=== PATIENT | male | born 2000 | race Two or more races ===

== ENCOUNTER 2024-01-20 11:31 | Emergency (ER) | payer MEDICAID, SELFPAY ==
[2024-01-20 11:35] VITALS: BP 128/73; PULSE 68; RESP 19; TEMP 36.6; O2SAT 98; BMI 28.1
--- NOTE | 2024-01-20 11:53 | ED.GENADULT ---
HPI - General Adult General Chief complaint: Wound/Laceration Stated complaint: R Ear Needs to be Drained Time Seen by Provider: 01/20/24 11:53 Source: patient Mode of arrival: ambulatory Limitations: no limitations History of Present Illness HPI narrative: Patient is a 23 year old, otherwise healthy, male presenting with an abscess behind his right ear. Patient endorses pain when the lesion is touched and a previous history of similar abscesses. Patient reports having previous abscesses surgically drained. MD complaint: Abscess behind right ear Onset (ago): week(s) (1) Location: head (behind right ear, close to earlobe.) Radiation: non-radiation Severity: mild Severity scale (1-10): 3 Pain Consistency: intermittent (when pressure is applied) Relieving factors: none Exacerbating factors: none Associated symptoms: denies other symptoms Treatments prior to arrival: none Related Data Previous Rx's Medication Instructions Recorded cefuroxime axetil 250 mg tablet 250 mg PO BID 7 days #14 tabs 01/20/24 Allergies Allergy/AdvReac Type Severity Reaction Status Date / Time No Known Allergies Allergy Verified 01/20/24 11:34 Review of Systems Constitutional: Constitutional: Reports no additional constitutional complaints, Denies chills, Denies fever(s) and Denies night sweats Eyes: Eyes: Reports no additional eye complaints, Denies blurry vision, Denies change in vision, Denies diplopia, Denies eye discharge, Denies loss of vision and Denies eye pain ENT: Denies dizziness Comments: abscess behind right ear Cardiovascular: Cardiovascular: Reports no additional cardiovascular complaints, Denies chest pain, Denies lightheadedness, Denies Loss of Consciousness and Denies dyspnea Respiratory: Respiratory: Reports no additional respiratory complaints and Denies dyspnea Gastrointestinal: Gastrointestinal: Reports no additional gastrointestinal complaints, Denies abdominal pain, Denies melena, Denies hematochezia, Denies change in bowel habits and Denies change in stool character Genitourinary: Genitourinary: Reports no additional male genitourinary complaints, Denies hematuria, Denies oliguria, Denies difficulty urinating, Denies dysuria, Denies urinary frequency, Denies urinary hesitancy, Denies urinary incontinence and Denies urinary urgency Musculoskeletal: Musculoskeletal: Reports no additional musculoskeletal complaints, Denies numbness and Denies tingling Neurologic: Denies dizziness, Denies loss of vision, Denies numbness and Denies tingling Psychiatric: Psychiatric: Reports no additional psychiatric complaints Endocrine: Endocrine: Reports no additional endocrine complaints Hematologic/Lymphatic: Hematologic/Lymphatic: Reports no additional hematologic/lymphatic complaints Allergic/Immunologic: Allergic/Immunologic: Reports no additional allergic/immunologic complaints [facility] Past Medical History Attestation statement: The following information was validated with the patient. Source: old records reviewed and nursing notes reviewed Social History Social History Advance Directives: No Advance Directives Information Provided: No Physical Exam ED Vital Signs: Vital Signs - 24 hr 01/20/24 11:35 Temperature 98 F Pulse Rate 68 Respiratory Rate 19 Blood Pressure 128/73 Pulse Oximetry 98 Oxygen Delivery Method Room Air BMI result Body Mass Index 28.1 Const General: cooperative, no acute distress, alert and awake Nutritional Appearance: well nourished Orientation/consciousness: patient oriented x3 Limitations: no limitations HENMT Head: Yes normal to inspection and Yes atraumatic Head images: 1. 1cm area of fluctuance behind the right ear Ears: hearing grossly normal bilaterally and external ears normal General nose exam: Normal external nose present, no nasal discharge noted and no epistaxis Face and sinus: Yes normal facial exam, No abrasion and No laceration Mouth: Normal oral and palatal mucosa present, no drooling and no muffled voice Eyes General: appearance normal, both eyes and all related structures Periorbital: periorbital findings normal Eyelids: Yes eyelids normal Conjunctivae: conjunctivae normal Pupils: Equal, round and reactive pupils present EOM: EOMs intact bilaterally Neck Neck: Yes normal visual inspection, Yes full ROM and Yes no lymphadenopathy Chest Chest palpation & inspection: normal inspection of the chest Resp Effort & Inspection: normal respiratory effort and able to speak in complete sentences GI Inspection: Yes normal to inspection Neuro General: patient oriented x3 and moves all extremities Cranial nerves: Yes Equal, round and reactive pupils present Cognition (Neuro): normal cognition Motor exam (neuro): 5/5 motor strength present throughout Sensory Exam: Normal double simultaneous stimulation for sensation Coordination: [id number] test normal Extrem General: Yes normal to inspection, Yes full ROM and Yes capillary refill normal Psych Appearance: grossly normal Mental Status: mental status grossly normal Affect: normal affect Attitude: cooperative Thought process: Normal thought process present Thought content: Normal thought content present Insight: Good insight present (Psych) Medications Administered Discontinued Medications Generic Name Dose Route Start Last Admin Trade Name Dmitry PRN Reason Stop Dose Admin Lidocaine HCl 1 appl 01/20/24 12:06 01/20/24 12:16 Lidocaine 4 % Cream Kit TOPICAL 01/20/24 12:07 1 appl ONCE ONE Administration Protocol Procedures Abscess I/D Site: other (behind ear) Side (if applicable): right Local Anesthetic: other anesthetic (LMX) Technique: needle aspiration Amount of fluid expressed (mL): 2 Sent for culture/gram staining?: No Irrigation: No Packing used?: none Medical Decision Making Medical Decision Making MDM Narrative: Patient is a 23 year old assigned male at with no reported medical history presenting to the emergency department today with an abscess behind his right ear. Patient's physical exam showed a 1cm area of flucuance posterior of the right ear. I explained my physical exam findings to the patient. I answered all questions asked by the patient. The area was numbed with LMX and I aspirated 2ml of purulent drainage from the area, without incident. I stressed the importance of the patient taking his medication as prescribed. I stressed the importance of the patient following up with his primary care provider and a general surgeon. I stressed the importance of the patient returning to the emergency department immediately if his symptoms were to worsen or if he were to develop any dizziness, shortness of breath, difficulty breathing, chest pain, blurry vision, loss of vision, nausea, vomiting, abdominal pain, fever, chills, back pain, or any other complaints. Patient verbalized agreement and understanding with this treatment plan and discharge. Differential Diagnosis Differential Diagnoses: The differential diagnosis associated with the presentation includes Abscess behind right ear Abscess Growth Cyst Admission/Observation Consideration of admission/observation: Escalation of care including admission/observation considered Patient would have been admitted to the hospital had his clinical presentation warranted hospital admission. Prescription Management I considered prescription management with: Antibiotic (patient prescribed an antibiotic for the abscess) Discharge Plan Discharge Clinical Impression: Abscess Patient Disposition: Home, Self-Care Instructions: Abscess (ED), Abscess Incision and Drainage (DC) Additional Instructions: Follow up with your primary care provider and a general surgeon. Return to the emergency department immediately if your symptoms worsen or if you develop any dizziness, shortness of breath, difficulty breathing, chest pain, blurry vision, loss of vision, nausea, vomiting, abdominal pain, fever, chills, back pain, or any other complaints. Prescriptions: New cefuroxime axetil 250 mg tablet 250 mg PO BID 7 Days Qty: 14 0RF Referrals: [facility] [place] General Surgeons [Provider Group] (Call to establish and follow up with a general surgeon.) [facility] [place] (Call to establish and follow up with a primary care provider. If you already have a primary care provider, please follow up with them.) [facility] [place] [facility] [facility] [Provider Group] (Call to establish and follow up with a primary care provider. If you already have a primary care provider, please follow up with them.) [facility] [place] [facility] [Provider Group] (Call to establish and follow up with a primary care provider. If you already have a primary care provider, please follow up with them.) Stand Alone Forms: Work/School Release Interventions: ED Discharge Assessment Last Done: 01/20/24 13:20 Discharge Date/Time: 01/20/24 13:21 Print Language: French
[2024-01-20] MEDS: Lidocaine 4 % Cream KIT 1 APPL TOPICAL (12:16)
== END 2024-01-20 13:21 | disposition home or self-care (01) ==
PROVIDERS: Emergency Provider Emergency Medicine
DX: L02.811 Cutaneous abscess of head [any part, except face] (principal)
CPT/HCPCS: 10160; 99283

== ENCOUNTER 2024-02-14 11:21 | Emergency (ER) | payer MEDICAID, SELFPAY ==
[2024-02-14 11:48] VITALS: BP 116/57; PULSE 73; RESP 16; TEMP 36.9; O2SAT 99; BMI 25.1
--- NOTE | 2024-02-14 11:49 | ED.GENADULT ---
HPI - General Adult General Chief complaint: Skin/Abscess/Foreign Body Stated complaint: Cyst needs to be drained Time Seen by Provider: 02/14/24 12:39 History of Present Illness HPI narrative: patient complains of cyst that is become red and painful and swollen behind his right ear over the past several days He believes he has had a cyst there for a long time that usually does not bother him but he believes it is gotten infected several times in the past but this is the worst with increased pain and swelling but no fever, he has no complaint of hearing loss, no other complaints Related Data Previous Rx's Medication Instructions Recorded cefuroxime axetil 250 mg tablet 500 mg (2 x 250 mg) PO BID 7 days 01/20/24 #28 tabs cephalexin 500 mg tablet 500 mg PO QID 7 days #28 tabs 02/14/24 doxycycline hyclate 100 mg capsule 100 mg PO BID 7 days #14 caps 02/14/24 ibuprofen 600 mg tablet 600 mg PO Q6H PRN pain #20 tabs 02/14/24 Allergies Allergy/AdvReac Type Severity Reaction Status Date / Time No Known Allergies Allergy Verified 02/14/24 11:48 [facility] Past Medical History Source: nursing notes reviewed Social History Social History Advance Directives: No Advance Directives Information Provided: Yes Physical Exam ED Vital Signs: Vital Signs - 24 hr 02/14/24 11:48 Temperature 98.5 F Pulse Rate 73 Respiratory Rate 16 Blood Pressure 116/57 L Pulse Oximetry 99 Oxygen Delivery Method Room Air BMI result Body Mass Index 25.1 general appearance is comfortable no acute distress The exam behind the right ear is a area of fluctuance and erythema, it does not fill the mastoid area it is just localized to the fluctuant area at the inferior portion posterior portion behind the ear, there is no significant redness to the mastoid area, the ear exam the eardrum is normal the canal is normal there is no swelling or redness of the canal or of the tympanic membrane The pharynx is clear Respiratory no distress Skin no other rashes Course Course Course Narrative: RME:?23 yo male here for eval of abscess behind right ear x3 days. he was seen 3 wks ago for same and had the area drained. he was placed on antibiotics which she has since completed. 2cm x2cm abscess behind right ear w/ central fluctuance. Full HPI, ROS and PE to be performed by the primary ED provider. Procedure note the abscess behind the right ear is cleansed and irrigated with Betadine 6 cc of 1% lidocaine is placed I aspirated a small amount of pus and proceeded forward with incision with an 11 blade with drainage of copious pus and then some blood Packing was placed Dressing applied, bleeding controlled Patient is placed on antibiotics and will return in 2 days for packing removal wound check, patient tolerated procedure well Medications Administered Discontinued Medications Generic Name Dose Route Start Last Admin Trade Name Freq PRN Reason Stop Dose Admin Cephalexin HCl 500 mg 02/14/24 12:48 02/14/24 13:15 Cephalexin 500 Mg Capsule PO 02/14/24 12:49 500 mg ONCE ONE Administration Doxycycline Monohydrate 100 mg 02/14/24 12:48 02/14/24 13:15 Doxycycline Monohydrate 100 Mg Capsule PO 02/14/24 12:49 100 mg ONCE ONE Administration Lidocaine HCl 5 ml 02/14/24 12:47 02/14/24 13:14 Lidocaine Hcl 1 % Mpf 5 Ml Vial SUBCUT 02/14/24 12:48 5 ml ONCE ONE Administration Lidocaine HCl 5 ml 02/14/24 12:48 02/14/24 13:15 Lidocaine Hcl 1 % Mpf 5 Ml Vial SUBCUT 02/14/24 12:49 5 ml ONCE ONE Administration Discharge Plan Discharge Clinical Impression: Cellulitis, Abscess of skin or subcutaneous tissue Patient Disposition: Home, Self-Care Additional Instructions: return to the ER in 2 days for packing removal and wound check If packing falls out do not attempt to replace it, you did not need to return to the ER for it to be replaced Return to the ER immediately any time if you develop fever, worse pain and swelling, any sign infection is worsening or any worse condition or concerns As you have had this infected and drained before, and as there is always a small bump there which may be a sebaceous cyst it would be a good idea to follow with surgery to see if there is a way to remove the cyst so you do not get future infections so the number is provided Prescriptions: New doxycycline hyclate 100 mg capsule 100 mg PO BID 7 Days Qty: 14 0RF cephalexin 500 mg tablet 500 mg PO QID 7 Days Qty: 28 0RF ibuprofen 600 mg tablet 600 mg PO Q6H PRN (Reason: pain) Qty: 20 0RF No Action cefuroxime axetil 250 mg tablet 500 mg PO BID 7 Days Qty: 28 0RF Referrals: Clary Moran MD [Physician] - ( recurrent abscess and cyst behind ear) Stand Alone Forms: Work/School Release
[2024-02-14] MEDS: Lidocaine HCl 1 % MPF 5 ML VIAL SUBCUT ×2 (13:14→13:15)
[2024-02-14] MEDS: cephALEXin 500 MG CAPSULE PO (13:15)
[2024-02-14] MEDS: Doxycycline Monohydrate 100 MG CAPSULE PO (13:15)
[2024-02-14 14:11] VITALS: BP 116/57; PULSE 73; RESP 16; TEMP 36.9; O2SAT 99
== END 2024-02-14 14:12 | disposition home or self-care (01) ==
PROVIDERS: Emergency Provider Emergency Medicine
DX: L02.01 Cutaneous abscess of face (principal); L03.811 Cellulitis of head [any part, except face]
CPT/HCPCS: 10060; 99282; 99284

== ENCOUNTER 2024-02-16 08:15 | Emergency (ER) | payer MEDICAID, SELFPAY ==
[2024-02-16 08:24] VITALS: BP 114/68; PULSE 69; RESP 18; TEMP 36.1; O2SAT 98; BMI 25.8
--- NOTE | 2024-02-16 10:08 | ED_ITS ---
HPI - General Adult General Chief complaint: Recheck/Abnormal Lab/Rx Stated complaint: Needs packing removed Time Seen by Provider: 02/16/24 09:08 Source: patient and RN notes reviewed Mode of arrival: ambulatory Limitations: no limitations History of Present Illness HPI narrative: This is a 23-year-old male presenting to the emergency department for wound check. Patient was seen in the emergency room 2 days ago after having a cyst excised and drained. At that time he he had a cyst behind his right ear for many years however noticed increased redness and pain over the last several days. He had an incision and drainage performed which was packed and was placed on doxycycline and Keflex as well as ibuprofen which he has been taking as directed. States that he tolerated the procedure well without any complications or concerns. He states that he has slight pain around the area but otherwise is feeling well. He denies any fevers, chills, chest pain, shortness of breath, abdominal pain, nausea, vomiting or diarrhea. No other complaints or concerns at this time. MD complaint: Wound check Onset (ago): day(s) Severity: moderate Quality: aching Pain Consistency: constant Relieving factors: none Exacerbating factors: none Associated symptoms: denies other symptoms Treatments prior to arrival: none Related Data Previous Rx's Medication Instructions Recorded cefuroxime axetil 250 mg tablet 500 mg (2 x 250 mg) PO BID 7 days 01/20/24 #28 tabs cephalexin 500 mg tablet 500 mg PO QID 7 days #28 tabs 02/14/24 doxycycline hyclate 100 mg capsule 100 mg PO BID 7 days #14 caps 02/14/24 ibuprofen 600 mg tablet 600 mg PO Q6H PRN pain #20 tabs 02/14/24 Allergies Allergy/AdvReac Type Severity Reaction Status Date / Time No Known Allergies Allergy Verified 02/14/24 11:48 Review of Systems Review of Systems: Yes all other systems are reviewed and are negative Constitutional: Constitutional: Reports as per [facility] Social History Social History Smoked in Last 30 Days: No Use of substances other than those prescribed or required for medical reasons: No Advance Directives: No Advance Directives Information Provided: Yes Physical Exam ED Vital Signs: Vital Signs - 24 hr 02/16/24 08:24 02/16/24 10:29 02/16/24 10:31 Temperature 97.0 F 98 F 98 F Pulse Rate 69 59 59 Respiratory Rate 18 16 16 Blood Pressure 114/68 111/71 111/71 Pulse Oximetry 98 98 98 Oxygen Delivery Method Room Air Room Air Room Air BMI result Body Mass Index 25.8 Const General: cooperative, comfortable and no acute distress Orientation/consciousness: patient oriented x3 Limitations: no limitations HENMT Other: Behind right ear there his 1 mm incision with wick placed. Wick was removed, no fluctuance or induration. No surrounding redness, or swelling. No mastoid tenderness Head: Yes normal to inspection, Yes normocephalic and Yes atraumatic Ears: hearing grossly normal bilaterally General nose exam: Normal external nose present Face and sinus: Yes normal facial exam Mouth: Normal oral and palatal mucosa present, oropharynx normal and moist mucous membranes Throat: Yes posterior oropharynx normal Eyes General: appearance normal, both eyes and all related structures Eyelids: Yes eyelids normal Conjunctivae: conjunctivae normal Sclerae: sclerae normal Pupils: Equal, round and reactive pupils present EOM: EOMs intact bilaterally Neck Neck: Yes normal visual inspection, Yes full ROM and Yes no lymphadenopathy Lymphatic: no lymphadenopathy noted Chest Chest palpation & inspection: normal inspection of the chest Resp Effort & Inspection: normal respiratory effort and able to speak in complete sentences Auscultation: clear to auscultation bilaterally, no crackles, no rales, no rhonchi and no wheezes Cardio Rate: regular rate Rhythm: regular rhythm Heart sounds: S1 normal heart sound present and S2 normal heart sound present GI Inspection: Yes normal to inspection Skin General skin exam: no rashes or lesions noted Trauma: no lacerations or abrasions Wounds: no wounds Neuro General: patient oriented x3 and moves all extremities Cranial nerves: Yes Equal, round and reactive pupils present Extrem General: Yes normal to inspection Right upper extremity: normal to inspection Left upper extremity: normal to inspection Right lower extremity: normal to inspection Left lower extremity: normal to inspection Medical Decision Making Medical Decision Making MDM Narrative: This is a 23-year-old male presenting to the emergency department for evaluation of wound check. On arrival, vital signs within normal limits. He had an incision and drainage performed 2 days ago. Area appears well healed, wick was removed, without any additional drainage. Wound is not need to be repacked. He has been taking prescribed antibiotic as directed. I explained to patient that this may return and if it does he may need to follow-up with the surgeon. Patient given surgeon referral. He understands and agrees with plan. Given return precautions. No other complaints or concerns at this time. Patient stable for discharge. Differential Diagnosis Differential Diagnoses: The differential diagnosis associated with the presentation includes Wound check, abscess, cellulitis, cyst Discharge Plan Discharge Clinical Impression: Visit for wound check Patient Disposition: Home, Self-Care Instructions: Abscess (ED), Warm Compress or Soak (ED) Additional Instructions: You were seen in the emergency department for a wound check. We removed the wick that was placed in the wound 2 days ago after you had this excised and drained. Please continue taking prescribed antibiotic and ibuprofen as needed for pain. Continue applying warm compresses to the area 5-6 times per day. If any new or worsening symptoms occur including but not limited to increased redness, swelling, fevers, chills, please return for re-evaluation. We discussed that this may return in you may need surgical intervention, I am giving you a referral to her surgeon should this return in you need this removed. Call to make an appointment if needed. Prescriptions: No Action cefuroxime axetil 250 mg tablet 500 mg PO BID 7 Days Qty: 28 0RF doxycycline hyclate 100 mg capsule 100 mg PO BID 7 Days Qty: 14 0RF cephalexin 500 mg tablet 500 mg PO QID 7 Days Qty: 28 0RF ibuprofen 600 mg tablet 600 mg PO Q6H PRN (Reason: pain) Qty: 20 0RF [place] [facility] [place] Group] Interventions: ED Discharge Assessment Last Done: 02/16/24 10:31 Discharge Date/Time: 02/16/24 10:30
[2024-02-16 10:29] VITALS: BP 111/71; PULSE 59; RESP 16; TEMP 36.6; O2SAT 98
[2024-02-16 10:31] VITALS: BP 111/71; PULSE 59; RESP 16; TEMP 36.6; O2SAT 98
== END 2024-02-16 10:30 | disposition home or self-care (01) ==
PROVIDERS: Emergency Provider Emergency Medicine
DX: R79.89 Other specified abnormal findings of blood chemistry (principal); Z48.00 Encounter for change or removal of nonsurgical wound dressing
CPT/HCPCS: 99283; 99284